=== PATIENT | female | born 1965 | race Caucasian/White ===

== ENCOUNTER 2021-11-07 08:12 | Emergency (ER) | payer MEDICARE, OTHER ==
[~2021-11-07] VITALS: Ht 154.9 cm; Wt 72.6 kg
[~2021-11-07 08:12] MED LIST: ALBUTEROL SULF8.5 GM INH; ASMANEX110 MCG INH; BACTRIM DS TAB1 EACH PO; C-10001000 MG PO; CALCIUM500 M1 PO; CARAFATE1 GM PO; CHROMIUM PICO1 EACH PO; CIPROFLOXACIN500 MG PO; COD LIVER OIL1 EAC1 PO; CYMBALTA30 MG PO; CYMBALTA60 MG PO; FENUGREEK500 MG PO; FLEXERIL10 MG PO; FORMULA E400 UNIT PO; GEMFIBROZIL600 MG PO; HYDROMORPHONE HC2 MG PO; LEVOCETIRIZINE D5 MG PO; LEVOTHYROXINE50 MCG PO; LISINOPRIL-HCT1 EACH PO; LORCET 5-325 M1 EACH PO; LYRICA150 MG PO; MEDROL4 M1 PO; METFORMIN HCL500 MG PO; METRONIDAZOLE500 MG PO; MULTI VITAMIN1 EACH PO; NEURONTIN300 MG PO; NIACIN500 M1 PO; NORCO 5-325 TA1 EACH PO; OXYCODONE HCL5 MG PO; PREMARIN0.3 MG PO; PRILOSEC20 MG PO; PROTONIX40 MG PO; PULMICORT FLE180 MCG IH; PULMICORT FLEX90 MCG IH; SINGULAIR10 MG PO; SM ESTRO VITAL PO; TRAZAMINE CONVE50 MG PO; TRAZODONE HCL50 MG PO; TRIAMCINOLONE A15 GM TOP; TURMERIC500 MG PO; WELLBUTRIN SR150 MG PO; WELLBUTRIN XL150 MG PO; ZESTORETIC 20-251 EA PO; ZOLOFT50 MG PO; [UNRECOGNIZED DRUG - OTHER] PO; [UNRECOGNIZED DRUG - OTHER] PO; [UNRECOGNIZED DRUG - OTHER] PO
[2021-11-07] MEDS ORDERED: CEPHALEXIN500 M1 PO (10:33)
== END 2021-11-07 10:40 | disposition home or self-care (01) ==
LOC: ED 08:12
DX: N39.0 Urinary tract infection, site not specified (principal); J45.909 Unspecified asthma, uncomplicated; Z88.5 Allergy status to narcotic agent; Z79.899 Other long term (current) drug therapy
CPT/HCPCS: 81001; 87088; 99283; A9270

== ENCOUNTER 2021-12-12 16:23 | Emergency (ER) | payer MEDICARE, OTHER ==
[~2021-12-12] VITALS: Ht 154.9 cm; Wt 76.0 kg
[~2021-12-12 16:23] MED LIST changes: +CEPHALEXIN500 M1 PO
--- OUTSIDE RECORDS SUMMARY | 2021-12-12 16:24 | XMS ---
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 EJusten VISIT COUNT (12 MO.) 2 [facility] TOTAL 2 NOTE: Visits indicate total known visits. ED/UCC VISIT TRACKING (12 MO.) 12/12/2021 16:23 [facility] [place] TYPE: Emergency COMPLAINT: - DIFFICULTY BREATHING 11/07/2021 08:13 [facility] [place] TYPE: Emergency COMPLAINT: - POSS UTI DIAGNOSES: - Allergy status to narcotic agent - Urinary tract infection, site not specified - Dysuria - Other regional intermodal truck driver (current) drug therapy - Unspecified asthma, uncomplicated INPATIENT VISIT TRACKING (12 MO.) No inpatient visits to display in this time frame [email or web address]
[2021-12-12] MEDS ORDERED: CYCLOBENZAPRINE10 MG PO (16:34)
[2021-12-12] MEDS ORDERED: PREDNISONE20 MG (16:34)
[2021-12-12] MEDS ORDERED: DULOXETINE HCL60 MG PO (16:35)
[2021-12-12] MEDS ORDERED: PREDNISONE20 MG PO (19:06)
== END 2021-12-12 19:23 | disposition home or self-care (01) ==
LOC: ED 16:23
DX: J45.901 Unspecified asthma with (acute) exacerbation (principal); J45.909 Unspecified asthma, uncomplicated; E07.9 Disorder of thyroid, unspecified; Z88.5 Allergy status to narcotic agent; Z79.899 Other long term (current) drug therapy
CPT/HCPCS: 71046; 94640; 99284-25; J7512

== ENCOUNTER 2023-02-12 08:12 | Inpatient (IN) | payer MEDICARE, OTHER ==
[2023-02-12] VITALS (7 sets, daily range): BP systolic 84–107; BP diastolic 32–62
[~2023-02-12] VITALS: Ht 154.9 cm; Wt 82.6 kg
[~2023-02-12 08:12] MED LIST changes: +CYCLOBENZAPRINE10 MG PO; +DULOXETINE HCL60 MG PO; +PREDNISONE20 MG; +PREDNISONE20 MG PO
--- OUTSIDE RECORDS SUMMARY | 2023-02-12 08:17 | XMS ---
PreManage Notification: ARIELLE AGUILAR Security Cattyman Events No recent Security Events currently on file CRITERIA MET - [place] CARE PROVIDERS -Chantel- Dentist: Section Repairer [facility] PHONE: [phone] ANDRES [facility] 08/10/2017-Current PHONE: Unknown John has no Care Guidelines for this patient. Leona VISIT COUNT (12 MO.) Ra Meredith TOTAL 1 NOTE: Visits indicate total known visits. ED/UCC VISIT TRACKING (12 MO.) 02/12/2023 08:14 [facility] [place] TYPE: Emergency COMPLAINT: - DIARRHEA, NO APPETITE, WEAK, DIZZY, FEVER INPATIENT VISIT TRACKING (12 MO.) No inpatient visits to display in this time frame [email or web address]
[2023-02-12] MEDS ORDERED: LISINOPRIL10 MG PO (08:37)
[2023-02-12] MEDS ORDERED: ESTRADIOL0.5 MG PO (08:37)
[2023-02-12] MEDS ORDERED: OXYCODONE-ACET1 EAC1 PO (08:37)
[2023-02-12] MEDS ORDERED: GABAPENTIN300 MG PO (08:38)
[2023-02-12] MEDS ORDERED: HYDROXYCHLOROQ200 MG PO (08:38)
--- NOTE | 2023-02-12 12:38 | NUR ---
PT TRANSFERED TO ROOM 123 VIA STRETCHER, SBA ASSIST FROM STRETCHER TO BED. PT OREINTED TO ROOM, CALL LIGHT AND SAFETY, VERBALIZED UNDERSTANDING. PT PROVIDED WATER AND BROTH. PT DENIES PAIN OR FURTHER NEEDS AT THIS TIME. CALL LIGHT IN REACH.
--- NOTE | 2023-02-12 14:59 | NUR ---
pt at bedside.
--- NOTE | 2023-02-12 15:07 | NUR ---
PT REQUESTING PAIN MEDICATION. RATES PAIN 810. PRN MEDS GIVEN.
[2023-02-12] MEDS ORDERED: LEVOTHYROXINE25 MCG PO (15:37)
--- NOTE | 2023-02-12 16:35 | NUR ---
MED REC COMPLETE
--- NOTE | 2023-02-12 16:45 | NUR ---
MEDICATION ADMINISTRATION COMPLETED. PT IS A/O, RESPIRATIONS EVEN AND REGULAR. REMINDED PT TO PLEASE CALL FOR ASSISTANCE WHEN SHE NEEDING TO USE THE RESTROOM.
--- NOTE | 2023-02-12 17:48 | NUR ---
TO PT ROOM. PT HAD SMALL LOOSE BM. STOOL SAMPLE SENT TO LAB.
--- NOTE | 2023-02-12 18:48 | NUR ---
NOTIFIED OF HYPOTENSION. PT IS ASYMPTOMATIC. TO PUT IN ORDERS FOR IV FLUIDS.
--- NOTE | 2023-02-12 19:30 | NUR ---
RECEIVED BEDSIDE REPORT FROM OFFGOING SHIFT, HOURLY ROUNDING INITIATED.
--- NOTE | 2023-02-12 20:13 | NUR ---
pt's CLAIRE TO RN STATION AND UPSET REGARDING POC. STATES, "WHAT EXACTLY ARE YOU GUYS DOING FOR HER BLOOD PRESSURE, WHY AREN'T YOU CONTINUOUSLY MONITORING IT". EDUCATED THAT CONTINUOUS MONITORING CANNOT BE DONE ON MEDSURG FLOOR, BUT pt's VS ARE ROUTINELY CHECKED THROUGHOUT THE SHIFT. CONTINUES BY ANGRILY STATING, "I HAD SOMEONE FROM [facility] AT ANOTHER HOSPITAL BECAUSE OF INCOMPETANT CARE. IT COMES ON VERY FAST". THIS RN THEN INTO ROOM TO TAKE SET OF VS, LADI LOWE ALSO IN ROOM. SBP SOFT-80'S, SEE VS CHARTING FROM CHRISSY BLEDSOE. BP 84/62 TAKEN MANUALLY. HR WNL. pt REPORTS INTERMITTENT DIZZINESS, UNCHANGED FROM EARLIER IN THE DAY PER pt. CURRENTLY DENIES. REMAISN UPSET AND DEMANDS TO SPEAK TO PURCHASING DEPARTMENT CLERK AND DR SAUNDERS. MADE AWARE OF ABOVE EVENTS, ORDERS PLACED FOR X1 LITER NS BOLUS. THIS RN STARTED AND MD AND PURCHASING DEPARTMENT CLERK BOTH TO COME TO ROOM AND DISCUSS POC AND ANSWER QUESTIONS. PRIMARY RN TITA NOW IN ROOM AND ALSO UPDATED.
--- NOTE | 2023-02-12 20:30 | NUR ---
IN PT ROOM TO SPEAK WITH PT SPOUSE AND PT ABOUT TREATMENT PLAN. FAMILY NOT SATISFIED WITH INFORMATION, DEMANDED TO SPEAK TO MD AND LIBRARY CLERICAL ASSISTANT ABOUT TREATMENT PLAN, MD AND LIBRARY CLERICAL ASSISTANT NOTIFIED.
--- NOTE | 2023-02-12 20:55 | NUR ---
IN PT ROOM WITH MD AND HYGIENE TEACHER. PT SPOUSE REQUESTING MORE DETAILS ON TREATMENT PLAN. MD ABLE TO SATISFACTORILY ANSWER ALL ASKED QUESTIONS, PT AND SPOUSE STATED THEY WERE MORE COMFORTABLE WITH THE SITUATION AT THIS POINT. AFTER CONVERSATION WITH FAMILY AND PT, ORDERED MEDICATIONS ADMINISTERED, NO FURTHER COMPLAINT, PT SPOUSE REQUESTING NOTIFICATION IF MD NEEDS TO BE CONTACTED FOR ANYTHING DURING THE NIGHT. PT CALL LIGHT IN REACH.
--- NOTE | 2023-02-12 21:30 | NUR ---
IN PT ROOM FOR MEDICATION ADMINISTRATION. PT RESTING ON BACK, EYES CLOSED, BREATHING EVEN AND UNLABORED. PT HAS NO COMPLAINT OF PAIN OR DISCOMFORT AT THIS TIME. PT DEPARTED FOR THE EVENING, CALL LIGHT IN REACH.
--- NOTE | 2023-02-13 00:47 | NUR ---
IN TO ANSWER CALL LIGHT. PT STATES "I HAD A MESS." PT STANDING AT SIDE OF BED. DIARRHEA NOTED TO FLOOR AND BACK OF PTs LEFT LEG. PT AMBULATES TO RESTROOM WITH STEADY GAIT. PT VOIDS IN TOILET. NEW GOWN PROVIDED. WASHED PTs LEG OFF IN SHOWER. DIARRHEA TO FLOOR CLEANED UP WITH BLEACH WIPES. PT BACK TO BED. PT REQUESTING ICE WATER. ICE WATER PROVIDED. PT DENIES ANY OTHER NEEDS AT THIS TIME. CALL LIGHT IN REACH.
[2023-02-13 01:50] VITALS: BP 110/48
--- NOTE | 2023-02-13 01:53 | NUR ---
VSS, I&O'S COLLECTED. pt REPORTS STOMACH MILDLY PAINFUL, REPORTS A CHRONIC PROBLE WHEN SHE "FEELS THIS WAY". DENIES NEED FOR INTERVENTION WHEN OFFERED, CALL LIGHT IN REACH. PRIMARY RN TITA UPDATED.
--- NOTE | 2023-02-13 02:43 | NUR ---
NEW BAG IV FLUIDS HUNG AND INFUSING DIRECTED. NO ADDITIONAL NEEDS OR CONCERNS VERBALIZED BY pt. CALLL LIGHT IN REACH. WILL CONTINUE TO MONITOR.
--- NOTE | 2023-02-13 03:40 | NUR ---
IN pt room for rounding. pt resting with eyes closed, breathing even and unlabored. Pt has no complaint of or indication of pain, call light in reach.
--- NOTE | 2023-02-13 05:00 | NUR ---
andres jacques called and asked for pt update, update provided including pt's trending vs. questions answered. primary rn nain updated.
[2023-02-13 06:21] VITALS: BP 116/59
--- NOTE | 2023-02-13 06:31 | NUR ---
IN PT ROOM FOR MEDICATION ADMINISTRATION, PT LAYING ON BACK EYES OPEN, ENGAGING IN CONVERSATION. PT PLEASED WITH LATEST BLOOD PRESSURE, HAS NO INDICATION OF DISCOMFORT, REQUESTS PAIN MEDICATION AND GIVEN. NO FURTHER COMPLAINT, CALL LIGHT IN REACH
[2023-02-13 09:10] VITALS: BP 123/56
--- NOTE | 2023-02-13 09:30 | NUR ---
Patient sitting up in bed watching tv, no distress. Patient reports liquid stool that is "slowing down". Patient's vital signs are stable, afebrile. Education provided to patient and regarding plan of care and blood pressure goals, both report their understanding. Room cleaned and garbage removed. IV site patent. No further needs.
[2023-02-13 09:50] VITALS: BP 109/60
--- NOTE | 2023-02-13 13:36 | NUR ---
SPOKE TO PATIENT ABOUT THE DISCHARGE PLAN OF CARE. PATIENT PLANS TO GO HOME WITH HER . PATIENT CAN DO HER OWN ADLS. PATIENT USES NO DME. PATIENT WAS ADMITTED FOR DIARRHEA/DEHYDRATION/DIZZINESS. PATIENT HAS CHRONIC NECK PATN AND IS ON DISABILITY. PATIENT DRIVES HER CAR WHEN SHE IS FEELING WELL. PATIENT CAN AFFORD RENT AND FOOD.PTS.HOUSE HAS A COUPLE STAIRS,EASY TO USE. PATIENT ENCOURAGED TO CALL THE MANAGER REVIEW FOR ANY DISCHARGE NEEDS.
--- NOTE | 2023-02-13 14:18 | NUR ---
Admin Percocet 5/325mg po for reports of 5/10 abd pain. IV abx started per provider order. Patient has no needs at this time.
[2023-02-13 14:19] VITALS: BP 116/57
--- NOTE | 2023-02-13 14:41 | NUR ---
Patient brought in her home Percocet pills. Per bottle; Percocet 5/325mg po #71 pills counted and verfied with second RN, Lizbeth. Medication placed in safe with sealed valuables bag. Pharmacy updated. Patient educated regarding medication placement. She reports her understanding of our hospital protocol.
--- NOTE | 2023-02-13 19:28 | NUR ---
RECEIVED BEDSIDE REPORT FROM OFFGOING SHIFT, HOURLY ROUNDING INITIATED, CALL LIGHT IN REACH
[2023-02-13 20:04] VITALS: BP 122/71
--- NOTE | 2023-02-13 20:12 | NUR ---
PT. VITALS AND I/OS CHARTED. PT. ROOM TIDIED, TRASH CANS EMPTIED. CALL LIGHT LEFT WITHIN REACH. FRESH ICE WATER PROVIDED. NO OTHER IMMEDIATE NEEDS AT THIS TIME.
--- NOTE | 2023-02-13 21:40 | NUR ---
IN pt room for assessment. Pt seen to be laying on back, HOB slightly elevated, eyes open and pt is conversational. Pt has no indication of pain or discomfort, has call light in reach.
--- NOTE | 2023-02-13 23:19 | NUR ---
IN pt room for rounding. pt resting on back, eyes closed, breathing even and unlabored with no indication of pain or discomfort, call light in reach
--- NOTE | 2023-02-14 00:43 | NUR ---
IN pt room for rounding. pt resting on back with eyes closed, breathing even and unlabored, no indication of pain or discomfort, call light in reach.
--- NOTE | 2023-02-14 02:26 | NUR ---
In pt room for rounding. Pt resting on back, eyes closed, breathing even and unlabored, no indication of pain or discomfort. Pt has call light in reach
--- NOTE | 2023-02-14 03:44 | NUR ---
IN pt room for rounding. Pt resting on bcak, eyes closed, breathing even and unlabored with no indication or complaint of pain or discomfort. Pt has call light in reach.
[2023-02-14 05:03] VITALS: BP 117/61
--- NOTE | 2023-02-14 05:16 | NUR ---
IN PT ROOM FOR ROUNDING. PT RESTING ON BACK, HOB ELEVATED, BREATHING EVEN AND UNLABORED, EYES CLOSED. PT HAS NO INDICATION OF PAIN OR DISCOMFORT, CALL LIGHT IN REACH.
--- NOTE | 2023-02-14 08:05 | NUR ---
One tab Percocet 5/325mg admin for reports of 6/10 left knee pain. Patient reports she slept well last night. Pt would like to discharge home this morning per her report. No current needs. Personal supplies and call light within reach.
[2023-02-14 09:41] VITALS: BP 116/65
--- NOTE | 2023-02-14 09:41 | NUR ---
PT IN BED. PRESENT IN ROOM. VITALS AND IS AND OS COMPLETE. HAT IN TOILET EMPTIED IT HAD NOT BEEN EMPTIED EARLIER. PT HAS NO NEEDS AT THIS TIME. CALL LIGHT WITHIN REACH.
[2023-02-14] MEDS ORDERED: VANCOMYCIN HCL125 MG PO (09:59)
[2023-02-14] MEDS ORDERED: METRONIDAZOLE500 MG PO (10:00)
== END 2023-02-14 11:18 | disposition home or self-care (01) | DRG 372 ==
LOC: ED 08:12 → MS 11:08
PROVIDERS: ADMIT Family Medicine; ATTEND Internal Medicine
DX: A04.72 Enterocolitis due to Clostridium difficile, not specified as recurrent (principal); N17.9 Acute kidney failure, unspecified; Z53.1 Procedure and treatment not carried out because of patient's decision for reasons of belief and group pressure; I95.9 Hypotension, unspecified; E86.0 Dehydration; Z20.822 Contact with and (suspected) exposure to COVID-19; M79.2 Neuralgia and neuritis, unspecified; J45.909 Unspecified asthma, uncomplicated; M54.2 Cervicalgia; M34.9 Systemic sclerosis, unspecified; G89.29 Other chronic pain; E03.9 Hypothyroidism, unspecified; Z96.653 Presence of artificial knee joint, bilateral; Z79.891 Long term (current) use of opiate analgesic; Z90.89 Acquired absence of other organs; Z98.891 History of uterine scar from previous surgery; Z90.710 Acquired absence of both cervix and uterus; Z90.49 Acquired absence of other specified parts of digestive tract; Z98.890 Other specified postprocedural states; Z98.84 Bariatric surgery status; Z79.890 Hormone replacement therapy; Z88.6 Allergy status to analgesic agent; Z79.899 Other long term (current) drug therapy
CPT/HCPCS: 36415; 80048; 80053; 83605; 83735; 84100; 85025; 87493; 87502; 97116; 97162; 97165; 97530; C9803; J2405; J7030; J7040; U0003

== ENCOUNTER 2023-03-13 11:37 | Emergency (ER) | payer MEDICARE, OTHER ==
[~2023-03-13] VITALS: Ht 154.9 cm; Wt 77.4 kg
[~2023-03-13 11:37] MED LIST changes: +ESTRADIOL0.5 MG PO; +GABAPENTIN300 MG PO; +HYDROXYCHLOROQ200 MG PO; +LEVOTHYROXINE25 MCG PO; +LISINOPRIL10 MG PO; +OXYCODONE-ACET1 EAC1 PO; +VANCOMYCIN HCL125 MG PO
--- OUTSIDE RECORDS SUMMARY | 2023-03-13 11:39 | XMS ---
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 EJusten VISIT COUNT (12 MO[address] [place] [address] TOTAL 2 NOTE: Visits indicate total known visits. ED/UCC VISIT TRACKING (12 MO.) 03/13/2023 11:[address] [facility] [place] TYPE: Emergency COMPLAINT: - DIARRHEA, ABD CRAMPS, NAUSEA 02/12/2023 08:14 [facility] [place] TYPE: Emergency COMPLAINT: - DIARRHEA, NO APPETITE, WEAK, DIZZY, FEVER INPATIENT VISIT TRACKING (12 MO.) 02/12/2023 11:[address] [facility] [place] TYPE: Medical Surgical COMPLAINT: - DIARRHEA DIAGNOSES: - Acquired absence of both cervix and uterus - Acquired absence of both cervix and uterus - Acquired absence of other organs - Acquired absence of other specified parts of digestive tract - Acquired absence of other specified parts of digestive tract - Acute kidney failure, unspecified - Acute kidney failure, unspecified - Allergy status to analgesic agent - Allergy status to analgesic agent - Bariatric surgery status - Bariatric surgery status - Cervicalgia - Cervicalgia - Contact with and (suspected) exposure to COVID-19 - Contact with and (suspected) exposure to COVID-19 - Dehydration - Dehydration - Elevated white blood cell count, unspecified - Enterocolitis due to Clostridium difficile, not specified as recurrent - Enterocolitis due to Clostridium difficile, not specified as recurrent - History of uterine scar from previous surgery - Hormone replacement therapy - Hypotension, unspecified - Hypotension, unspecified - Hypothyroidism, unspecified - Hypothyroidism, unspecified - termite control representative (current) use of opiate analgesic - termite control representative (current) use of opiate analgesic - Neuralgia and neuritis, unspecified - Other chronic pain - Other chronic pain - Other intermediate (current) drug therapy - Other intermediate (current) drug therapy - Other specified postprocedural states - Other specified postprocedural states - Presence of artificial knee joint, bilateral - Procedure and treatment not carried out because of patient's decision for reasons of belief and group pressure - Sepsis, unspecified organism - Systemic sclerosis, unspecified - Systemic sclerosis, unspecified - Unspecified asthma, uncomplicated - Unspecified asthma, uncomplicated [email or web address]
[2023-03-13] MEDS ORDERED: CYCLOBENZAPRINE10 MG PO (12:39)
[2023-03-13] MEDS ORDERED: DIFICID200 MG PO (14:42)
[2023-03-13 15:06] VITALS: BP 114/62
== END 2023-03-13 15:08 | disposition home or self-care (01) ==
LOC: ED 11:37
DX: A04.71 Enterocolitis due to Clostridium difficile, recurrent (principal); J45.909 Unspecified asthma, uncomplicated; E03.9 Hypothyroidism, unspecified; Z88.6 Allergy status to analgesic agent; Z88.5 Allergy status to narcotic agent; Z79.899 Other long term (current) drug therapy
CPT/HCPCS: 87493; 99284

== ENCOUNTER 2024-06-16 13:03 | Emergency (ER) | payer MEDICARE, OTHER ==
[~2024-06-16] VITALS: Ht 154.9 cm; Wt 74.3 kg
[~2024-06-16 13:03] MED LIST changes: +DIFICID200 MG PO; +ESTRADIOL1 EAC2 TD; +HYDROCHLOROTHIA25 MG PO; +K-TAB ER20 MEQ PO
[2024-06-16] MEDS ORDERED: methylPREDNISolone SOD SUCC 125 MG/2 ML VIAL IV ONE (13:15)
[2024-06-16] MEDS ORDERED: ALBUTEROL/IPRATROPIUM 3 ML NEB INH ONE (13:15)
[2024-06-16] MEDS ORDERED: ALBUTEROL SULFATE 0.5% 2.5 MG/0.5 ML VIAL INH ONE ×2 (13:30→14:00)
[2024-06-16 13:32] LABS: BASOPHILS 0.6 % (0-2); EOSINOPHILS 3.7 % (0-6); HEMATOCRIT 33.6 % (35.0-50.0); HEMOGLOBIN 10.8 g/dL (12.0-18.0); LYMPHOCYTES 31.9 % (24-44); MCH 25.4 (27-36); MCHC 32.1 g/dl (30-36); MCV 79.1 fl (81-99); MONOCYTES 6.7 % (0-12); NEUTROPHILS 57.1 % (39-80); PLATELET COUNT 392 K/uL (140-440); RBC 4.25 M/ul (4.3-5.7); RDW 18.7 (10.5-15.0)
[2024-06-16 13:49] LABS: ALBUMIN/GLOBULIN RATIO 1.18 (1.1-2.4); ANION GAP 11.3 (7-21); BILIRUBIN, TOTAL 0.4 ng/dL (0.2-1.0); BUN/CREATININE RATIO 20.93 (6.0-28.6); CALCIUM 9.4 mg/dL (8.5-10.1); CREATININE, SERUM 0.86 mg/dL (0.55-1.02); MAGNESIUM 2.2 mg/dL (1.8-2.4); POTASSIUM 3.3 mmol/L (3.5-5.1); PROTEIN, TOTAL 7.4 g/dL (6.4-8.2)
[2024-06-16] MEDS ORDERED: PREDNISONE20 MG PO (15:37)
[2024-06-16 15:50] VITALS: BP 132/55
== END 2024-06-16 15:51 | disposition home or self-care (01) ==
LOC: ED 13:03
PROVIDERS: Emergency Medicine
DX: J45.909 Unspecified asthma, uncomplicated (principal); E03.9 Hypothyroidism, unspecified; Z79.899 Other long term (current) drug therapy; Z88.6 Allergy status to analgesic agent; Z88.5 Allergy status to narcotic agent
CPT/HCPCS: 36415; 71045; 80053; 83735; 84484; 85025; 94644; 96374; 99285-25; J2919